=== PATIENT | female | born 1985 | race Caucasian/White ===

== ENCOUNTER 2021-08-31 18:01 | Emergency (ER) | payer MEDICAID, OTHER ==
[~2021-08-31] VITALS: Ht 172.7 cm; Wt 78.6 kg
[~2021-08-31 18:01] MED LIST: BUPR150T8 PO; LEVO25TA4 PO; PERM60CR12 TP; PRED20TA PO; TRAZ-120 PO
--- NOTE | 2021-08-31 18:15 | PHYS DOC ---
Past History Past Medical History: No Pertinent History Past Surgical History: No Surgical History Alcohol Use: Occasionally Drug Use: None Adult General HPI HPI Patient seen by SIEBEL ADMINISTRATOR Allergies Allergies Allergies Coded Allergies Type Severity Reaction Last Updated Verified Penicillins Allergy Severe 02/22/15 No EKG EKG [] Radiology/Procedures Radiology/Procedures [] Heart Score C/O Chest Pain: N/A Risk Factors: Risk Factors: DM, Current or recent (<one month) smoker, HTN, HLP, family history of CAD, obesity. Risk Scores: Risk Factors: DM, Current or recent (<one month) smoker, HTN, HLP, family history of CAD, obesity. Course & Med Decision Making Course & Med Decision Making Patient seen by JAMA Cobian Disclaimer Mango Disclaimer This electronic medical record was generated, in whole or in part, using a voice recognition dictation system. Departure Departure: Impression: Primary Impression: Abdominal pain Referrals: PCPALEK (PCP) CHAPO COULTER MD Aug 31, 2021 18:15
[2021-08-31 19:04] LABS: CLARITY,URINE CLOUDY
[2021-08-31 19:05] LABS: COLOR,URINE ORANGE; RBC,URINE >40 /HPF (0-2); WBC,URINE >40 /HPF (0-4)
[2021-08-31 19:06] LABS: BACTERIA,URINE MOD /HPF (0-FEW); SQUAMOUS EPITHELIAL CELL,UR FEW /LPF
[2021-08-31 19:41] VITALS: BP 117/50
--- NOTE | 2021-08-31 19:49 | RAD ---
Exam: CT of abdomen and pelvis without contrast INDICATION: Hematuria, right-sided flank pain TECHNIQUE: Sequential axial images through the abdomen and pelvis obtained without IV contrast. Sagit tin and coronal reformatted images were reconstructed from the axial data and reviewed. Exposure: One or more of the following in the visualized dose reduction techniques were utilized for this examination: 1. Automated exposure control 2. Adjustment of the MA and/or KV according to patient size 3. Use of iterative of reconstructive technique Comparisons: None FINDINGS: Heart size is normal. No pericardial effusion. Visualized lung bases are clear pleural effusion. Evaluation of solid organs is limited secondary to noncontrast technique. Liver, spleen, pancreas, and adrenals are unremarkable. Gallbladder is absent. No renal or ureteral calculi. No perinephric inflammation or hydronephrosis. Bladder is decompressed. There is perivesicular fat stranding noted. Uterus is nonenlarged. IUD noted in the uterus. No abnormal adnexal mass. Large bowel demonstrate a moderate amount of stool. Appendix is normal. No free intra-abdominal air o r fluid. No obstruction. Small bowel is unremarkable. Abdominal aorta has normal course and caliber. No enlarged intra-abdominal lymph nodes are identified. No suspicious osseous lesions or acute fractures. IMPRESSION: 1. No renal or ureteral calculi. No evidence for obstructive uropathy. 2. Bladder is decompressed with extensive adjacent perivesicular fat stranding. Correlate with urina lysis for infection. Electronically signed by: Sania Ruano MD (08/31/2021 7:47 PM) [facility]
[2021-08-31] MEDS ORDERED: SULF1TAB23 PO (20:29)
--- NOTE | 2021-08-31 20:30 | PHYS DOC ---
Past History Past Medical History: No Pertinent History (TITO LUNSFORD Carol SPINDLE TESTER) Past Surgical History: Cholecystectomy (JONNTITO Carol SPINDLE TESTER) Alcohol Use: Occasionally Drug Use: None (TITO LUNSFORD Carol SPINDLE TESTER) Adult General Chief Complaint Chief Complaint: PAIN ON URINATION [facility] Patient is a 36-year-old female patient presenting to the ED today complaining of dysuria for 3 days as well as urinary frequency. Patient denies any fever. She is also complaining of passing blood clots. She is not sure if they are coming from vagina or urethra. She states she has not had a period for years. She has a Mirena. Patient states she is taking Azo with no relief (TITO LUNSFORD Carol SPINDLE TESTER) Review of Systems Review of Systems Constitutional: Denies fever or chills [] Eyes: Denies change in visual acuity, redness, or eye pain [] HENT: Denies nasal congestion or sore throat [] Respiratory: Denies cough or shortness of breath [] Cardiovascular: No additional information not addressed in HPI [] GI: Denies abdominal pain, nausea, vomiting, bloody stools or diarrhea [] : Reports dysuria, urinary frequency, possible vaginal bleeding or hematuria Musculoskeletal: Denies back pain or joint pain [] Integument: Denies rash or skin lesions [] Neurologic: Denies headache, focal weakness or sensory changes [] All other systems were reviewed and found to be within normal limits, except as documented in this note. (TITO LUNSFORD Carol SPINDLE TESTER) Allergies Allergies Allergies Coded Allergies Type Severity Reaction Last Updated Verified Penicillins Allergy Severe 02/22/15 No (TITO LUNSFORD SPINDLE TESTER) Physical Exam Physical Exam Constitutional: Well developed, well nourished, no acute distress, non-toxic ap pearance. [] HENT: Normocephalic, atraumatic, bilateral external ears normal, oropharynx moist, no oral exudates, nose normal. [] Eyes: PERRLA, EOMI, conjunctiva normal, no discharge. [] Neck: Normal range of motion, no tenderness, supple, no stridor. [] Cardiovascular:Heart rate regular rhythm, no murmur [] Lungs & Thorax: Bilateral breath sounds clear to auscultation [] Abdomen: Bowel sounds normal, soft, no tenderness, no masses, no pulsatile masses. [] Skin: Warm, dry, no erythema, no rash. [] Back: No tenderness, no CVA tenderness. [] Extremities: No tenderness, no cyanosis, no clubbing, ROM intact, no edema. [] Neurologic: Alert and oriented X 3, normal motor function, normal sensory function, no focal deficits noted. [] Psychologic: Affect normal, judgement normal, mood normal. [] (TITO LUNSFORD APRN) Current Patient Data Vital Signs Vital Signs Date Time Temp Pulse Resp B/P (MAP) Pulse Ox O2 Delivery O2 Flow Rate FiO2 08/31/21 18:15 98.4 100 20 157/80 (105) 100 Room Air Lab Results Laboratory Tests Test 08/31/21 18:25 Urine Collection Type Clean catch Urine Color [place] Urine Clarity Cloudy Urine pH Urine Specific [place] Urine Protein (NEG-TRACE) Urine Glucose (UA) mg/dL (NEG) Urine Ketones (Stick) mg/dL (NEG) Urine Blood (NEG) Urine Nitrite (NEG) Urine Bilirubin (NEG) Urine Urobilinogen Dipstick mg/dL (0.2 mg/dL) Urine Leukocyte Esterase (NEG) Urine RBC >40 /HPF (0-2) Urine WBC >40 /HPF (0-4) Urine Squamous Epithelial Cells Few /LPF Urine Bacteria Mod /HPF (0-FEW) (TITO LUNSFORD SPINDLE TESTER) EKG EKG [] (TITO LUNSFORD APRN) Radiology/Procedures Radiology/Procedures []PROCEDURE: CT ABDOMEN PELVIS WO CONTRAST Exam: CT of abdomen and pelvis without contrast INDICATION: Hematuria, right-sided flank pain TECHNIQUE: Sequential axial images through the abdomen and pelvis obtained without IV contrast. Sagittal and coronal reformatted images were reconstructed from the axial data and reviewed. Exposure: One or more of the following in the visualized dose reduction techniques were utilized for this examination: 1. Automated exposure control 2. Adjustment of the MA and/or KV according to patient size 3. Use of iterative of reconstructive technique Comparisons: None FINDINGS: Heart size is normal. No pericardial effusion. Visualized lung bases are clear pleural effusion. Evaluation of solid organs is limited secondary to noncontrast technique. Liver, spleen, pancreas, and adrenals are unremarkable. Gallbladder is absent. No renal or ureteral calculi. No perinephric inflammation or hydronephrosis. Bladder is decompressed. There is perivesicular fat stranding noted. Uterus is nonenlarged. IUD noted in the uterus. No abnormal adnexal mass. Large bowel demonstrate a moderate amount of stool. Appendix is normal. No free intra-abdominal air or fluid. No obstruction. Small bowel is unremarkable. Abdominal aorta has normal course and caliber. No enlarged intra-abdominal lymph nodes are identified. No suspicious osseous lesions or acute fractures. IMPRESSION: 1. No renal or ureteral calculi. No evidence for obstructive uropathy. 2. Bladder is decompressed with extensive adjacent perivesicular fat stranding. Correlate with urinalysis for infection. Electronically signed by: Sania Zamora MD (08/31/2021 7:47 PM) [facility] DICTATED AND SIGNED BY: SANIA ZAMORA MD DATE: 08/31/211942 CC: TITO LUNSFORD APRN; PCP,NO ~MTH0 0 (TITO LUNSFORD APRN) Heart Score C/O Chest Pain: N/A Risk Factors: Risk Factors: DM, Current or recent (<one month) smoker, HTN, HLP, family history of CAD, obesity. Risk Scores: Risk Factors: DM, Current or recent (<one month) smoker, HTN, HLP, family history of CAD, obesity. (TITO LUNSFORD APRN) Course & Med Decision Making Course & Med Decision Making Pertinent Labs and Imaging studies reviewed. (See chart for details) This is a 36-year-old female patient presented to the ED today complaining of dysuria, urinary frequency and possible hematuria or vaginal bleeding. Symptoms began 3 days ago. Currently on Azo. UA was unable to be read by lab due to color. It was noted for over [address] of the abdomen pelvis was negative for nephrolithiasis, noted for perivesic ular fat stranding in bladder. This patient likely has acute cystitis. She is allergic to penicillin. D/c on Bactrim (TITO LUNSFORD APRN) Course & Med Decision Making Did not see or evaluate patient. Did not discuss patient with OPERA SINGER. Agree with OPERA SINGER's work-up and disposition per note (CHAPO COULTER MD) Dragon Disclaimer Dragon Disclaimer This electronic medical record was generated, in whole or in part, using a voice recognition dictation system. (TITO LUNSFORD APRN) Departure Departure: Impression: Primary Impression: Acute cystitis Disposition: HOME / SELF CARE / HOMELESS Condition: STABLE Referrals: PCP,NO (PCP) Follow-up with your doctor in 1 week Patient Instructions: Urinary Tract Infection Additional Instructions: You have a bladder infection. Please take the prescribed antibiotics until completed. Follow-up with your primary care doctor in 1 week. Push fluids, come back to the ED at any point symptoms worsen Scripts Sulfamethoxazole/Trimethoprim (BACTRIM 400-80 MG TABLET) 1 Each Tablet 1 TAB PO BID for 7 Days, #14 TAB 0 Refills Prov: TITO LUNSFORD APRN 08/31/21 Problem Qualifiers Primary Impression: Acute cystitis Hematuria presence: with hematuria Qualified Codes: N30.01 - Acute cystitis with hematuria TITO LUNSFORD APRN Aug 31, 2021 20:30 CHAPO COULTER MD Aug 31, 2021 20:56
[2021-08-31 20:42] LABS: U PREG PATIENT NEGATIVE (NEG)
[2021-08-31] MEDS ORDERED: SMZ/TMP 800/160MG TABLET. PO ONE (21:00)
== END 2021-08-31 21:00 | disposition home or self-care (01) ==
LOC: ER 18:01
DX: N30.01 Acute cystitis with hematuria (principal); Z90.49 Acquired absence of other specified parts of digestive tract; Z88.0 Allergy status to penicillin
CPT/HCPCS: 74176; 81001; 81025; 87077; 87086; 99284